=== PATIENT | male | born 1960 | race Caucasian/White ===

== ENCOUNTER 2017-11-18 08:18 | Day surgery (SDC) | payer MEDICARE ==
[2017-11-18] MEDS ORDERED: Lidocaine 2% MPF (5 ml) Inj ONE (08:42)
[2017-11-18] MEDS ORDERED: ceFAZolin 1 gm in NS 0 GM/0 ML BAG IVPB ONE (08:42)
[2017-11-18] MEDS ORDERED: Bupivacaine HCl 0.5% PF (30 ml) Inj ONE (08:42)
[2017-11-18] MEDS: Bacitracin 150,000 UNIT in Sodium Chloride 0.9% Irrig 3,000 ML IR SCH ×2 (09:07→09:49)
[2017-11-18] MEDS ORDERED: Propofol 10 mg/ml Inj (20 ML) ONE (09:09)
[2017-11-18] MEDS ORDERED: Midazolam 2 MG/2 ML VIAL ONE (09:09)
[2017-11-18] MEDS ORDERED: HYDROmorphone 0.5 mg/0.5 ml ISec IVP PRN (10:02)
--- NOTE | 2017-11-18 10:10 | PCM.SURG1 ---
Surgeon's Initial Post Op Note - Surgeon's Notes Surgeon: Dr. Ramirez Bateman DPM Circuit Manager: Dr. Antolin Kamara DPM PGY-1 Type of Anesthesia: IV Sedation, Local Anesthesia Administered By: Dr. Bhumi BELTRÁN Pre-Operative Diagnosis: Left foot plantar digits 1 to 4 necrotic ulcer secondary to thermal injury Operative Findings: See dictation. M: none. I: 20 cc of 1:1 2% lidocaine plain :0.5% marcaine plain - pre-op Post-Operative Diagnosis: Left foot plantar digits 1 to 4 necrotic ulcer secondary to thermal injury Operation Performed: Debridement of the left foot digit 1-4 ulcer Specimen/Specimens Removed: None Estimated Blood Loss: EBL {In ML}: 0 Blood Products Given: N/A Drains Used: No Drains Post-Op Condition: Good Date of Surgery/Procedure: 11/18/17 Time of Surgery/Procedure: 10:11
[2017-11-18] MEDS ORDERED: Oxycodone/Acetaminophen 5/325 mg Tab PO PRN ×2 (10:11)
[2017-11-18 11:32] VITALS: RESP 16; TEMP 97.5
[2017-11-18 12:15] VITALS: BP 146/71; PULSE 74; O2SAT 98
--- NOTE | 2017-11-22 07:32 | OP ---
PROCEDURE DATE: 11/18/2017 SURGEON: Ramirez Smith DPM DEPARTMENT HEAD: Antolin Kamara DPM, PGY-1 ANESTHESIOLOGIST: John Toure MD TYPE OF ANESTHESIA: IV sedation with local. PREOPERATIVE DIAGNOSIS: Left plantar digit 1 through 4 necrotic ulcer. POSTOPERATIVE DIAGNOSIS: Left plantar digit 1 through 4 necrotic ulcer. PROCEDURE: Debridement of the left plantar digital 1 through 4 necrotic ulcer. INDICATION: The patient is a 56-year-old male with the above diagnosis. The patient has exhausted all conservative treatment at this time and now requires surgical intervention. The patient signed the consent after careful explantation of risks, benefits, complications and alternatives for the surgical procedure. N.p.o. status was confirmed prior to taking the patient to the operating room. No guarantees were given nor implied. PREPARATION: The patient was brought into the operating room and placed on the operating room table in a supine position. A time-out was performed for identification of the correct patient and the procedure. The patient received a total of 20 mL of 1:1 mixture of 2% lidocaine plain and 0.25% Marcaine plain in a local block type fashion to the left forefoot. Once anesthesia was achieved, the left foot was then prepped and draped in a normal sterile manner and the procedure began. No tourniquet was used during this procedure. PROCEDURE: Debridement of left plantar digital 1 through 4 necrotic ulcer. DESCRIPTION OF PROCEDURE: Attention was directed towards the plantar aspect of the digits 1 through 4 where necrotic wound eschars were noted. Using an iris scissors, necrotic ulcers were removed from the digits. Using the small curette, the wound bases were debrided to a healthy bleeding tissue wounds on the digits, were then flushed with copious amount of hydrogen peroxide and was dressed with Xeroform, 4x4, Kerlix. POSTOPERATIVE CONDITION: The patient tolerated the anesthesia and the procedure well and was escorted to the recovery room with vital signs stable and neurovascular status intact to the left foot. The patient to remain full weightbearing to the left foot with surgical shoe. This patient will be followed by Dr. Smith as an outpatient in his office. Antolin Kamara DPM Ramirez Smith DPM [facility] # [id number]
== END 2017-11-18 12:30 | disposition home or self-care (01) ==
LOC: C.SDS 08:18
PROVIDERS: ATTEND Podiatrist Foot Surgery
DX: E11.621 Type 2 diabetes mellitus with foot ulcer (principal); L97.529 Non-pressure chronic ulcer of other part of left foot with unspecified severity
CPT/HCPCS: 11042; 82948; J2250; J2704; J3010